=== PATIENT | female | born 1995 | race African-American/Black ===

== ENCOUNTER 2020-09-15 23:56 | Emergency (ER) | payer SELFPAY ==
[~2020-09-15] VITALS: Ht 157.5 cm; Wt 81.6 kg
[2020-09-16 00:01] VITALS: BP 126/79
[2020-09-16] MEDS ORDERED: ACETAMINOPHEN ES 500 MG TABLET ONE (00:16)
--- NOTE | 2020-09-16 00:22 | NUR ---
PT TO XRAY VIA [facility].
[2020-09-16] MEDS: ACETAMINOPHEN 325 MG TABLET PO ONE (00:31)
--- NOTE | 2020-09-16 01:11 | NUR ---
Patient discharged to home in stable condition. Written and verbal after care instructions given. Patient verbalizes understanding of instruction.
== END 2020-09-16 01:24 | disposition home or self-care (01) ==
LOC: ER 23:59
DX: O9A.212 Injury, poisoning and certain other consequences of external causes complicating pregnancy, second trimester (principal); S16.1XXA Strain of muscle, fascia and tendon at neck level, initial encounter; S00.83XA Contusion of other part of head, initial encounter; Z3A.20 20 weeks gestation of pregnancy; V49.49XA Driver injured in collision with other motor vehicles in traffic accident, initial encounter; Y93.89 Activity, other specified; Y92.413 State road as the place of occurrence of the external cause; Y99.8 Other external cause status
CPT/HCPCS: 70150-TC; 72050-TC